=== PATIENT | male | born 1970 ===

== ENCOUNTER 2021-05-29 12:41 | Emergency (ER) | payer MEDICAID, SELFPAY ==
--- NOTE | ~2021-05-29 | XR_ITS ---
EXAMINATION: XR CHEST CLINICAL INFORMATION: Chest wall pain COMPARISON: None TECHNIQUE: Frontal view of the chest was obtained. FINDINGS: The cardiac and mediastinal contours are normal. The lungs are clear. There is no pleural effusion or pneumothorax. There are degenerative changes of the spine. XR/XR chest 1V IMPRESSION: No evidence for acute disease in the chest.
--- NOTE | 2021-05-29 12:48 | ECG_ITS ---
Test Reason : CHEST WALL PAIN Blood Pressure : / mmHG Vent. Rate : 081 BPM Atrial Rate : 081 BPM P-R Int : 154 ms QRS Dur : 086 ms QT Int : 366 ms P-R-T Axes : 040 -08 036 degrees QTc Int : 425 ms Normal sinus rhythm Normal ECG When compared with ECG of 15-NOV-2015 09:54, No significant change was found Referred By: Ksenia Marie Electronically Signed By:PETEY CAMPOS
[2021-05-29 12:50] VITALS: BP 131/92; PULSE 86; RESP 18; TEMP 36.5; O2SAT 97; BMI 36.5
[2021-05-29] MEDS: Ibuprofen 400 MG TABLET PO (12:58)
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
[2021-05-29 13:07] VITALS: BP 124/77; PULSE 76; RESP 16; TEMP 36.6; O2SAT 94
[2021-05-29 13:12] LABS: MANUAL DIFF FLAG NO
[2021-05-29 13:16] LABS: Basophils Percent Auto 0.5 % (0-2); Eosinophils Absolute Auto 0.1 X10*3/uL (0.0-0.4); Eosinophils Percent Auto 1.1 % (0-4); Hemoglobin 16.5 g/dl (14.0-18.0); Imm Gran Abs Auto 0.02 X10*3/uL (0.00-0.03); Imm Gran Pct Auto 0.2 % (0.0-0.4); Lymphocytes Absolute Auto 1.3 X10*3/uL (1.2-4.9); Lymphocytes Percent Auto 16.3 % (20-40); Mean Corpuscular Hemoglobin 28.5 pg (27.0-33.0); Mean Corpuscular Volume 86.5 fL (80-98); Mean Platelet Volume 10.6 fL (9.4-12.4); Monocytes Absolute Auto 0.7 X10*3/uL (0.1-1.2); Monocytes Percent Auto 8.4 % (2-11); Neutrophils Percent Auto 73.5 % (45-73); Platelet Count 184 X10*3/uL (160-400); Red Blood Count 5.78 X10*6/uL (4.60-5.80); Red Cell Distribution Width 13.2 % (11.0-16.0); White Blood Count 8.2 X10*3/uL (4.8-10.8)
--- NOTE | 2021-05-29 13:20 | PC.NURSE ---
PT REFUSED BACK MAKER AND MD VICKI AWARE.
[2021-05-29 13:32] LABS: Alanine Aminotransferase 17 U/L (0-40); Albumin Level 4.6 g/dL (3.5-5.0); Alkaline Phosphatase 59 U/L (39-117); Anion Gap 12 (12-20); Aspartate Amino Transferase 19 U/L (5-37); Bilirubin Total 0.4 mg/dL (0.0-1.0); Blood Urea Nitrogen 16 mg/dL (9-16); Calcium 9.6 mg/dL (8.4-10.2); Carbon Dioxide 25 mmol/L (22-29); Chloride 107 mmol/L (96-108); Creatinine Clr Calc Pharmacy 127.7; Estimated Glomerular Filt Rate > 60; Glucose Random 103 mg/dL (60-115); Potassium 4.4 mmol/L (3.3-5.1); Sodium 140 mmol/L (135-145); Total Protein 7.7 g/dL (6.5-8.0)
[2021-05-29 13:38] LABS: Troponin-I High Sensitivity 7.1 ng/L (<3.5-35.0)
--- NOTE | 2021-05-29 13:59 | PC.NURSE ---
PLAN WITH MD FOR PO OXYCODONE AND AWAITING XRAY RESULTS
[2021-05-29] MEDS: oxyCODONE HCl Immed Release 5 MG TABLET PO (14:04)
== END 2021-05-29 15:05 | disposition other institution (70) ==
PROVIDERS: Emergency Provider Student in an Organized Health Care Education/Training Program; PCP Hospitalist
DX: R07.89 Other chest pain (principal)
CPT/HCPCS: 36415; 71045; 80053; 84484; 85025; 93005; 99283; 99284

== ENCOUNTER 2021-09-17 00:44 | Emergency (ER) | payer MEDICAID, SELFPAY ==
[2021-09-17 01:00] VITALS: BP 104/79; PULSE 108; RESP 16; TEMP 37.1; O2SAT 96; BMI 32.8
--- NOTE | 2021-09-17 01:40 | PC.NURSE ---
I spoke with PRIYANKA Serrato from [facility] regarding this patient. Ama states that Vlad is, at baseline, often agitated but the past two days has been much more agitated than what we're used to. Ama also states that today he has been hyper-gnosticist, and he has never been that way. She also states that Vlad was threatening to hurt staff from [facility], and states he always makes those threats and he has never acted on them. Also of note, Ama states that Vlad has gotten ahold of illicit substances in the past. Cynthia MCKOY updated.
--- NOTE | 2021-09-17 02:10 | ED.GENADULT ---
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 On arrival with unit aide patient states that he does not get along well with the staff at [facility] Tiffanie's stated that he needed to step away from moment. He otherwise denies any fevers, chills, breathing difficulties or abdominal pain. Related Data Allergies Allergy/AdvReac Type Severity Reaction Status Date / Time No Known Allergies Allergy Unverified 06/11/20 18:53 [No Known Allergies*] Review of Systems Review of Systems: Pertinent positives and negatives as stated in HPI 10 point review of systems otherwise negative. PMFSH Past Medical History Source: nursing notes reviewed Medical History Anoxic brain damage COVID-19 Dementia GERD (gastroesophageal reflux disease) Hyperlipemia Myopia Peripheral pterygium, stationary Social History Social History Alcohol intake: never Advance Directives: No Physical Exam Vital Signs: Vital Signs: Last Vital Signs Temp 98.7 F 09/17/21 01:00 Pulse 108 H 09/17/21 01:00 Resp 16 09/17/21 01:00 BP 104/79 09/17/21 01:00 Pulse Ox 96 09/17/21 01:00 BMI result Body Mass Index 32.8 VITAL SIGNS: Reviewed. GENERAL: Well developed, well nourished, in no acute distress. HEAD: Normocephalic/atraumatic EYES: PERRLA, EOMI OROPHARYNX: no oral lesions noted, posterior pharynx clear LUNGS: Normal breath sounds. No adventitious sounds or accessory muscle use. SpO2<96> CARDIOVASCULAR: Regular rate and rhythm without noted murmurs ABDOMEN: Soft, non-tender, non-distended with bowel sounds. NEUROLOGIC: Alert and oriented x 3 Course Course Course Narrative: 51-year-old male with history and clinical presentation consistent with symptoms associated with patient's underlying TBI and basic labs that were obtained in review of all investigations are otherwise negative for acute findings. Patient was reassured and encouraged to ?start breath? and was otherwise stable and amenable to transfer back to care 1. Medical Decision Making Lab Data Result diagrams: 09/17/21 02:15 09/17/21 02:15 Labs: Lab Results 09/17/21 09/17/21 09/17/21 Range/Units 02:15 02:15 02:18 WBC 10.9 H (4.8-10.8) X10*3/uL RBC 5.67 (4.60-5.80) X10*6/uL Hgb 16.3 (14.0-18.0) g/dl Hct 49.1 (42.0-52.0) % MCV 86.6 (80.0-98.0) fL MCH 28.7 (27.0-33.0) pg MCHC 33.2 (31.0-36.0) g/dl RDW 13.3 (11.0-16.0) % Plt Count 196 (160-400) X10*3/uL MPV 10.7 (9.4-12.4) fL Immature Gran % (Auto) 0.2 (0.0-0.4) % Neut % (Auto) 66.4 (45-73) % Lymph % (Auto) 21.9 (20-40) % [place] % (Auto) 9.7 (2-11) % Eos % (Auto) 1.3 (0-4) % Baso % (Auto) 0.5 (0-2) % Lymph # (Auto) 2.4 (1.2-4.9) X10*3/uL [place] # (Auto) 1.1 (0.1-1.2) X10*3/uL Eos # (Auto) 0.1 (0.0-0.4) X10*3/uL Baso # (Auto) 0.1 (0.0-0.2) X10*3/uL Abs Immat Gran (auto) 0.02 (0.00-0.03) X10*3/uL Absolute Neuts (auto) 7.3 (2.0-8.3) x10*3/uL Absolute Nucleated RBC 0.000 (0.0-0.012) X10*3/uL Nucleated RBC % (auto) 0.0 (0.0-0.2) /100WBC Sodium 140 (135-145) mmol/L Potassium 4.1 (3.3-5.1) mmol/L Chloride 106 (96-108) mmol/L Carbon Dioxide 26 (22-29) mmol/L Anion Gap 12 (12-20) BUN 13 (9-16) mg/dL Creatinine 1.04 (0.5-1.4) mg/dL Estim Creat Clear Calc 102.0 Estimated GFR > 60 Random Glucose 107 (60-115) mg/dL Calcium 10.6 H D (8.4-10.2) mg/dL Total Bilirubin 0.6 (0.0-1.0) mg/dL AST 41 H D (5-37) U/L ALT 24 (0-40) U/L Alkaline Phosphatase 60 (39-117) U/L Total Protein 7.9 (6.5-8.0) g/dL Albumin 4.8 (3.5-5.0) g/dL Urine Color YELLOW Urine Appearance CLEAR Urine pH 6.0 (5.0-8.0) Ur Specific [place] 1.020 (1.005-1.025) Urine Protein NEG (NEG-TRACE) MG/DL Urine Glucose (UA) NEG (NEG) MG/DL Urine Ketones NEG (NEG) MG/DL Urine Blood NEG (NEG) Urine Nitrite NEG (NEG) Ur Leukocyte Esterase NEG (NEG) Urine Opiates Screen (Not Detect) Urine Fentanyl Screen (Not Detect) Ur Barbiturates Screen (Not Detect) Ur Phencyclidine Scrn (Not Detect) Ur Amphetamines Screen (Not Detect) U Benzodiazepines Scrn (Not Detect) Urine Cocaine Screen (Not Detect) U Marijuana (THC) Screen (Not Detect) 09/17/21 Range/Units 02:18 WBC (4.8-10.8) X10*3/uL RBC (4.60-5.80) X10*6/uL Hgb (14.0-18.0) g/dl Hct (42.0-52.0) % MCV (80.0-98.0) fL MCH (27.0-33.0) pg MCHC (31.0-36.0) g/dl RDW (11.0-16.0) % Plt Count (160-400) X10*3/uL MPV (9.4-12.4) fL Immature Gran % (Auto) (0.0-0.4) % Neut % (Auto) (45-73) % Lymph % (Auto) (20-40) % [place] % (Auto) (2-11) % Eos % (Auto) (0-4) % Baso % (Auto) (0-2) % Lymph # (Auto) (1.2-4.9) X10*3/uL [place] # (Auto) (0.1-1.2) X10*3/uL Eos # (Auto) (0.0-0.4) X10*3/uL Baso # (Auto) (0.0-0.2) X10*3/uL Abs Immat Gran (auto) (0.00-0.03) X10*3/uL Absolute Neuts (auto) (2.0-8.3) x10*3/uL Absolute Nucleated RBC (0.0-0.012) X10*3/uL Nucleated RBC % (auto) (0.0-0.2) /100WBC Sodium (135-145) mmol/L Potassium (3.3-5.1) mmol/L Chloride (96-108) mmol/L Carbon Dioxide (22-29) mmol/L Anion Gap (12-20) BUN (9-16) mg/dL Creatinine (0.5-1.4) mg/dL Estim Creat Clear Calc Estimated GFR Random Glucose (60-115) mg/dL Calcium (8.4-10.2) mg/dL Total Bilirubin (0.0-1.0) mg/dL AST (5-37) U/L ALT (0-40) U/L Alkaline Phosphatase (39-117) U/L Total Protein (6.5-8.0) g/dL Albumin (3.5-5.0) g/dL Urine Color Urine Appearance Urine pH (5.0-8.0) Ur Specific [place] (1.005-1.025) Urine Protein (NEG-TRACE) MG/DL Urine Glucose (UA) (NEG) MG/DL Urine Ketones (NEG) MG/DL Urine Blood (NEG) Urine Nitrite (NEG) Ur Leukocyte Esterase (NEG) Urine Opiates Screen Not Detected (Not Detect) Urine Fentanyl Screen Not Detected (Not Detect) Ur Barbiturates Screen Not Detected (Not Detect) Ur Phencyclidine Scrn Not Detected (Not Detect) Ur Amphetamines Screen Not Detected (Not Detect) U Benzodiazepines Scrn Not Detected (Not Detect) Urine Cocaine Screen Not Detected (Not Detect) U Marijuana (THC) Screen Not Detected (Not Detect) Discharge Plan Discharge Clinical Impression: Encounter for medical assessment Patient Disposition: Home, Self-Care Instructions: 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 Resume all home medications as prescribed. Return to the ER for worsening symptoms. Print Language: Ukrainian
[2021-09-17 02:23] LABS: MANUAL DIFF FLAG NO
[2021-09-17 02:25] LABS: Appearance Urine CLEAR; Color Urine YELLOW; Glucose Urine UA NEG (NEG); Leukocyte Esterase Urine NEG (NEG); Nitrite Urine NEG (NEG); Urine Blood NEG (NEG); Urine Ketones NEG (NEG); Urine Protein NEG (NEG-TRACE)
[2021-09-17 02:25] LABS: Basophils Absolute Auto 0.1 X10*3/uL (0.0-0.2); Basophils Percent Auto 0.5 % (0-2); Eosinophils Absolute Auto 0.1 X10*3/uL (0.0-0.4); Eosinophils Percent Auto 1.3 % (0-4); Hematocrit 49.1 % (42.0-52.0); Hemoglobin 16.3 g/dl (14.0-18.0); Imm Gran Abs Auto 0.02 X10*3/uL (0.00-0.03); Imm Gran Pct Auto 0.2 % (0.0-0.4); Lymphocytes Absolute Auto 2.4 X10*3/uL (1.2-4.9); Lymphocytes Percent Auto 21.9 % (20-40); Mean Corpuscular HGB Conc 33.2 g/dl (31.0-36.0); Mean Corpuscular Hemoglobin 28.7 pg (27.0-33.0); Mean Corpuscular Volume 86.6 fL (80.0-98.0); Mean Platelet Volume 10.7 fL (9.4-12.4); Monocytes Absolute Auto 1.1 X10*3/uL (0.1-1.2); Monocytes Percent Auto 9.7 % (2-11); Neutrophils Absolute Auto 7.3 x10*3/uL (2.0-8.3); Neutrophils Percent Auto 66.4 % (45-73); Platelet Count 196 X10*3/uL (160-400); Red Blood Count 5.67 X10*6/uL (4.60-5.80); Red Cell Distribution Width 13.3 % (11.0-16.0); White Blood Count 10.9 X10*3/uL (4.8-10.8)
[2021-09-17 02:45] LABS: Alanine Aminotransferase 24 U/L (0-40); Albumin Level 4.8 g/dL (3.5-5.0); Alkaline Phosphatase 60 U/L (39-117); Anion Gap 12 (12-20); Aspartate Amino Transferase 41 U/L (5-37); Bilirubin Total 0.6 mg/dL (0.0-1.0); Blood Urea Nitrogen 13 mg/dL (9-16); Carbon Dioxide 26 mmol/L (22-29); Chloride 106 mmol/L (96-108); Estimated Glomerular Filt Rate > 60; Glucose Random 107 mg/dL (60-115); Potassium 4.1 mmol/L (3.3-5.1); Sodium 140 mmol/L (135-145); Total Protein 7.9 g/dL (6.5-8.0)
[2021-09-17 02:53] LABS: Calcium 10.6 mg/dL (8.4-10.2)
[2021-09-17 03:36] LABS: Amphetamine Screen Urine Not Detected (Not Detect); Barbiturates, Urine Not Detected (Not Detect); Benzodiazepines Screen Urine Not Detected (Not Detect); Cannabinoid Screen Urine Not Detected (Not Detect); Cocaine Screen Urine Not Detected (Not Detect); Fentanyl, urine Not Detected (Not Detect); Opiate Screen Urine Not Detected (Not Detect); Phencyclidine Screen Urine Not Detected (Not Detect)
== END 2021-09-17 05:02 | disposition home or self-care (01) ==
PROVIDERS: Emergency Provider Student in an Organized Health Care Education/Training Program
DX: R41.82 Altered mental status, unspecified (principal); Z71.1 Person with feared health complaint in whom no diagnosis is made
CPT/HCPCS: 36415; 80053; 80307; 81003; 85025; 99284

== ENCOUNTER 2024-01-18 13:29 | Outpatient (REF) | payer MEDICAID, SELFPAY ==
--- NOTE | ~2024-01-18 | US_ITS ---
EXAMINATION: US SCROTUM CLINICAL INFORMATION: Testicular pain. COMPARISON: None available. TECHNIQUE: A sonogram of the scrotum was performed assessing belle-scale appearance and color Doppler flow. Spectral Doppler analysis of the arterial and venous flow were performed in the testes bilaterally. FINDINGS: RIGHT: Right testicle measures 4.5 x 2.7 x 3.3 cm, volume 21 mL. No focal testicular parenchymal lesions are visualized. Spectral Doppler analysis of the arterial and venous flow is normal in the right testis. Right epididymal head is normal in size. Some small epididymal cysts are present. There is a moderate-sized right-sided hydrocele seen but no varicocele is seen. Right epididymal Doppler flow is normal. LEFT: Left testicle measures 4.2 x 2.5 x 3.0 cm, volume 16 mL. No focal testicular parenchymal lesions are visualized. Spectral Doppler analysis of the arterial and venous flow is normal in the left testis. Left epididymal head is normal in size. Some small epididymal cysts are present. There is a tiny left hydrocele seen but no varicocele is seen. Left epididymal Doppler flow is normal. US/US scrotum IMPRESSION: 1. Bilateral hydroceles, right greater than left. 2. Bilateral epididymal cysts. 3. No evidence of testicular torsion or malignancy.
== END 2024-01-18 13:30 | disposition home or self-care (01) ==
LOC: HO.US 13:29
PROVIDERS: Visit Provider Hospitalist
DX: N50.819 Testicular pain, unspecified (principal)
CPT/HCPCS: 76870

== ENCOUNTER 2024-04-16 13:13 | Outpatient (AMB) | payer MEDICAID, SELFPAY ==
--- NOTE | 2024-04-16 13:34 | MHC.OFFVIS ---
Intake Visit Reasons: bilateral edpididymal cysts/ bilateral hydroceles Intake Note: New Patient presents for initial visit for bilateral epididymal cysts and bilateral Urology Medications: none Blood Thinner: none [employer] Consultant Required: No Accompanied by: PHYSIOTHERAPY AIDE Allergies No Known Allergies [No Known Allergies*] Allergy (Unverified 04/16/24 14:12) Medication List - Last Reconciled 04/16/24 by GINA GreenP-BC acetaminophen 650 mg PO Q6H PRN alum-mag hydroxide-simeth 200-200-20 mg/5 mL (Nicolle-Lanta) 30 mL PO Q6H PRN atorvastatin 40 mg PO DAILY benztropine 0.5 mg PO BID bisacodyl 10 mg CA DAILY PRN calcium carbonate (Calcium 500) 500 mg PO BID clonazepam 1 mg PO DAILY famotidine (Acid Photo Optics Technician (famotidine)) 10 mg PO BID gemfibrozil 600 mg PO BID glucagon 1 mg subcut Q20M PRN haloperidol 1.5 mg PO DAILY ibuprofen 600 mg PO Q6H PRN insulin asp prt-insulin aspart 100 unit/mL (70-30) (Novolog Mix 70-30 U-100 Insuln) 1 sliding scale dose subcut USEASDIRECTD lactulose 20 grams PO BID loratadine 10 mg PO DAILY PRN melatonin 5 mg PO BEDTIME PRN metformin 500 mg PO DAILY miconazole nitrate 2% (Micro-Guard) 1 appl topical DAILY PRN multivitamin 1 tab PO DAILY rifaximin (Xifaxan) 550 mg PO BID sodium phosphates 19-7 gram/118 mL (Fleet Enema) 118 mL CA DAILY PRN HPI Comments Details: Vlad is a very pleasant 53-year-old male patient of Dr. Briggs who is accompanied by Mary one of the staff memebers at [facility]. He has a past medical history of hyperlipidemia, peripheral pterygium, myopia, GERD, dementia, and anoxic brain damage. He presents to the office today as a new patient for scrotal discomfort. In discussion with the patient today he reports noting ongoing scrotal discomfort at which time he followed up with his doctor and a scrotal ultrasound was ordered and performed. These results were reviewed with the patient today. Bilateral hydroceles right greater than left. Bilateral epididymal cysts. No evidence of testicular torsion or malignancy. In assessment of the patient today small bilateral hydroceles and epididymal cysts are noted. No pain on assessment today. He reports pain is intermittent. Discussed further treatment options of bilateral hydroceles and epididymal cysts. He otherwise denies any bothersome urinary issues or concerns. He denies urinary urgency, urinary frequency, incontinence, nocturia, hematuria, dysuria, foul smelling urine, changes to urinary stream, flank pain, fever, and or chills. He is happy with his current voiding parameters. He otherwise offers no other issues or concerns at this time. [facility] Medical History Hyperlipemia COVID-19 Peripheral pterygium, stationary Myopia GERD (gastroesophageal reflux disease) Dementia Anoxic brain damage Social History Alcohol intake: never Patient Tobacco Use Status: Former Tobacco user Review of Systems Const All systems reviewed & are unremarkable except as noted in HPI and below Physical Exam Const General: cooperative, healthy appearing, comfortable, no acute distress, well developed, alert and awake Orientation/consciousness: oriented to person Limitations: no limitations HEENT Head: Yes normal to inspection, Yes normocephalic and Yes atraumatic Ears: hearing grossly normal bilaterally Eyes General: appearance normal, both eyes and all related structures Neck Neck: Yes normal visual inspection and Yes trachea midline Chest Chest palpation & inspection: normal inspection of the chest Resp Effort & Inspection: normal respiratory effort and able to speak in complete sentences Cardio Rate: regular rate GI Inspection: Yes normal to inspection Other: As per HPI General: Yes no CVA tenderness Back/Spine/Pelvis Back: no CVA tenderness Skin General skin exam: no rashes or lesions noted Neuro General: oriented to person Extrem General: Yes normal to inspection Psych Appearance: grossly normal and well kempt Mental Status: mental status grossly normal Speech and movement: Normal speech and movement present and Clear speech present Affect: normal affect Attitude: cooperative Thought process: Normal thought process present Thought content: Normal thought content present Insight: Fair insight present (Psych) Judgement: Fair judgement present (Psych) Results AMB Urinalysis, Automated UA Leukoctes 0 Giselle/uL Last Edit by Xiomy Gonzalez on 04/16/24 14:17 UA Nitrite Negative Last Edit by Xiomy Gonzalez on 04/16/24 14:17 UA Urobilinogen 0.2 mg/dL Last Edit by Xiomy Gonzalez on 04/16/24 14:17 UA Protein 0 mg/dL Last Edit by Xiomy Gonzalez on 04/16/24 14:17 UA pH 8.5 Last Edit by Xiomy Gonzalez on 04/16/24 14:17 UA Blood 0 Jcarlos/uL Last Edit by Xiomy Gonzalez on 04/16/24 14:17 UA Specific [place] 1.010 Last Edit by Xiomy Gonzalez on 04/16/24 14:17 UA Ketone Negative Last Edit by Xiomy Gonzalez on 04/16/24 14:17 UA Bilirubin 0 mg/dL Last Edit by Xiomy Gonzalez on 04/16/24 14:17 UA Glucose 0 mg/dL Last Edit by Xiomy Gonzalez on 04/16/24 14:17 Results Reviewed Results Reviewed: Laboratory Last Values Urine pH (Auto) 8.5 04/16/24 14:14 Specific [place] (Auto) 1.010 04/16/24 14:14 Urine Protein (Auto) 0 mg/dL 04/16/24 14:14 Glucose (UA)(Auto) 0 mg/dL 04/16/24 14:14 Urine Ketones (Auto) Negative 04/16/24 14:14 Urine Blood (Auto) 0 Jcarlos/uL 04/16/24 14:14 Urine Nitrite (Auto) Negative 04/16/24 14:14 Urine Bilirubin (Auto) 0 mg/dL 04/16/24 14:14 Urine Urobilinogen (Auto) 0.2 mg/dL 04/16/24 14:14 Leukocyte Esterase (Auto) 0 Giselle/uL 04/16/24 14:14 Date of Service: 01/18/24 EXAMINATION: US SCROTUM FINDINGS: RIGHT: Right testicle measures 4.5 x 2.7 x 3.3 cm, volume 21 mL. No focal testicular parenchymal lesions are visualized. Spectral Doppler analysis of the arterial and venous flow is normal in the right testis. Right epididymal head is normal in size. Some small epididymal cysts are present. There is a moderate-sized right-sided hydrocele seen but no varicocele is seen. Right epididymal Doppler flow is normal. LEFT: Left testicle measures 4.2 x 2.5 x 3.0 cm, volume 16 mL. No focal testicular parenchymal lesions are visualized. Spectral Doppler analysis of the arterial and venous flow is normal in the left testis. Left epididymal head is normal in size. Some small epididymal cysts are present. There is a tiny left hydrocele seen but no varicocele is seen. Left epididymal Doppler flow is normal. IMPRESSION: 1. Bilateral hydroceles, right greater than left. 2. Bilateral epididymal cysts. 3. No evidence of testicular torsion or malignancy. Assessment & Plan Assessment & Plan (1) Epididymal cyst: Code(s): N50.3 - Cyst of epididymis Category: Medical (2) Bilateral hydrocele: Code(s): N43.3 - Hydrocele, unspecified Category: Medical Plan In office urinalysis results reviewed with the patient today; as noted above. Discussed at length potential causes of epididymal head cyst as well as hydroceles; discussed further treatment options. No pain elicited on exam today. Patient currently denies any bothersome urinary issues or concerns. He reports be happy with current voiding parameters. Will continue with surveillance monitoring at this time. Will obtain scrotal ultrasound in 1 year. Follow-up in 1 year with imaging to be completed prior; or sooner with any issues, concerns, and or questions. Orders: Orders AMB Urinalysis Automated Today Z13.9 - Encounter for screening, unspecified US scrotum 1 Year N43.3 - Hydrocele, unspecified Patient Instructions: The patient had an opportunity to ask questions regarding the treatment plan. All questions were answered. Physical exam, labs, and imaging were discussed and reviewed in detail. As well as risks, benefits, and discussion of treatment choices. No major barriers to understanding were identified. The patient expressed understanding and agreement with the above treatment plan. The patient was made aware they should contact our office by phone for worsening of their current condition, the appearance of new symptoms, or with any questions or concerns. Compliance is encouraged with any medications and follow up testing that is ordered. It is a privilege to be allowed the opportunity to participate in? your urological care.? Again, if you have any questions or concerns If you have any questions or concerns please do not hesitate to contact me. The office is [phone]. This note is constructed using voice recognition software. While every effort has been made to ensure accuracy out patient therapist errors may have been included. Yours sincerely, TRANG Green Coding Level of Care Code New Pt Level 3 (62555) Diagnoses Epididymal cyst N50.3 Bilateral hydrocele N43.3
== END 2024-04-16 14:03 | disposition home or self-care (01) ==
PROVIDERS: PCP Hospitalist; Visit Provider Nurse Practitioner Family
DX: N50.3 Cyst of epididymis (principal); N43.3 Hydrocele, unspecified; Z13.9 Encounter for screening, unspecified
CPT/HCPCS: 99203

== ENCOUNTER → 2024-04-16 13:13 | Outpatient (BNVA) | payer MEDICAID, SELFPAY | PROVIDERS: PCP Hospitalist; Visit Provider Nurse Practitioner Family | DX: N50.3 Cyst of epididymis (principal); N43.3 Hydrocele, unspecified | CPT/HCPCS: 81003; 99202 ==

== ENCOUNTER 2025-04-03 12:32 | Outpatient (REF) | payer MEDICAID, SELFPAY ==
--- NOTE | ~2025-04-03 | US_ITS ---
CLINICAL HISTORY: N43.3 - Hydrocele, unspecified US Scrotum with Doppler Comparison: US/SR - US SCROTUM - 01/18/24 13:42 EDT Findings: Right testicle normal echotexture, 4.4 x 2.9 x 2.7 cm. Left testicle normal echotexture, 4.3 x 2.5 x 2.9 cm. Color Doppler and arterial/venous spectral tracings of both testicles within normal limits. There are small bilateral epididymal cysts, right much greater than left. There is a moderate right-sided hydrocele and a tiny left-sided hydrocele, without significant change. There is no evidence of varicocele. IMPRESSION: Moderate right-sided hydrocele and tiny left-sided hydrocele without significant change. This document has been electronically signed by: Desirae Gregg MD on 04/04/2025 13:35:48
--- OUTSIDE RECORDS SUMMARY | 2025-04-03 12:39 | XMS_ITS | Clinical Summary ---
Author Organization 299 [facility] Address [address] [place] [address] Phone Care Team Providers Care Comedian Name Role Phone Israel Briggs MD Primary Care Provider [phone] Encounters Date Type Department Care Team Description 04/03/2025 Lab Requisition [facility] Lab [address] [place] [phone] Israel Briggs MD Type 2 diabetes mellitus without complications ([facility] V24, CMS/[facility] V28); Disorder of urea cycle metabolism, unspecified (CMS/[facility] V24) 02/06/2025 Lab Requisition [facility] Lab [address] [place] [phone] Israel Briggs MD Anoxic brain damage, not elsewhere classified (CMS/[facility] V24, CMS/[facility] V28) 01/02/2025 Lab Requisition [facility] Lab [address] [place] [phone] Israel Briggs MD Type 2 diabetes mellitus without complications (CMS/HCC V24, CMS/HCC V28); Disorder of urea cycle metabolism, unspecified (CMS/[facility] V24) from Last 3 Months Social History Tobacco Use Types Packs/Day Years Used Date Smoking Tobacco: Never Assessed Sex and Gender Information Value Date Recorded Sex Assigned at Not on file Legal Sex Male 7:32 PM EST Gender Identity Not on file Sexual Orientation Not on file Plan of Treatment Health Maintenance Due Date Last Done Comments Diabetes: Annual Foot Exam 1978 Diabetes: Annual Retina Eye Exam 1978 DTaP,Tdap,and Td Vaccines (1 - Tdap) 1987 Hepatitis B Vaccines (1 of 3 - 19+ 3-dose series) 1987 Pneumococcal Vaccine: 50+ Years (1 of 2 - PCV) 1987 Pneumococcal Vaccine: Pediatrics (0 to 5 Years) and At-Risk Patients (6 to 49 Years) (1 of 2 - PCV) 1987 Zoster Vaccines (1 of 2) 2018 Colorectal Cancer Screening: Colonoscopy 08/27/2022 Depression Screening 08/27/2022 HIV Screening 08/27/2022 Hepatitis C Screening 08/27/2022 Social Influencers of Health Screening 08/27/2022 COVID-19 Vaccine (1 - 2023-2 5 season) 2024 Diabetes: Annual Urine Albumin-Creatinine Ratio (uACR) 10/04/2024 Influenza Vaccine (#1) 2025 Diabetes: Blood Sugar Contro l Test (HGBA1C) 07/04/2025 01/02/2025, 10/04/2024 Diabetes: Annual GFR (Glomerular Filtration Rate) 02/06/2026 02/06/2025, 11/04/2024 Cholesterol Screening (Lipid Panel) 11/04/2029 11/04/2024 HIB Vaccines Aged Out No longer eligi ble based on patient's age to complete this topic HPV Vaccines Aged Out No longer eligi ble based on patient's age to complete this topic Hepatitis A Vaccines Aged Out No long er eligible based on patient's age to complete this topic IPV Vaccines Aged Out No longer eligi ble based on patient's age to complete this topic MMR Vaccines Aged Out No longer eligi ble based on patient's age to complete this topic Meningococcal ACWY Vaccine Aged Out N o longer eligible based on patient's age to complete this topic Meningococcal B Vaccine Aged Out No l onger eligible based on patient's age to complete this topic RSV Immunization Patients Under 20 months Aged Out No longer eligible b ased on patient's age to complete this topic Varicella Vaccines Aged Out No longer eligible based on patient's age to complete this topic Procedures Procedure Name Priority Date/Time Associated Diagnosis Comments AMMONIA Routine 04/03/2025 6:40 AM EDT Type 2 diabetes mellitus without complications (CMS/HCC V24, CMS/HCC V28) Disorder of urea cycle metabolism, unspecified (CMS/HCC V24) COMPREHENSIVE METABOLIC PANEL Routine 02/06/2025 5:47 AM EDT Anoxic brain damage, not elsewhere classified (CMS/HCC V24, CMS/HCC V28) AMMONIA Routine 01/02/2025 6:15 AM EDT Type 2 diabetes mellitus without complications ([facility] V24, [facility] V28) Disorder of urea cycle metabolism, unspecified ([facility] V24) HEMOGLOBIN A1C Routine 01/02/2025 6:15 AM EDT Type 2 diabetes mellitus without complications ([facility] V24, [facility] V28) Disorder of urea cycle metabolism, unspecified ([facility] V24) LIPID PANEL WITH REFLEX TO DIRECT LDL Routine 11/04/2024 5:55 AM EST Type 2 diabetes mellitus without complications ([facility]) Hyperlipidemia, unspecified from Last 3 Months or Most Recently Relevant to Health Maintenance Results * (ABNORMAL) Ammonia (04/03/2025 6:40 AM EDT) Only the most recent of2 resultswithin the time period is included. Ammonia 47(H) 11 - 35 mcmol/L LAB CHEMISTRY METHOD 04/03/2025 7:55 AM EDT [facility] Blood Venous blood specimen / Unknown 04/03/2025 6:40 AM EDT 04/03/2025 7:22 AM EDT us Israel Briggs MD LAB BLOOD ORDERABLES Final Resul t [facility] [address] [place] [address], [place] [phone] * (ABNORMAL) Comprehensive metabolic panel (02/06/2025 5:47 AM EDT) Sodium 139 133 - 145 mmol/L LAB CHEMISTRY METHOD 02/06/2025 8:02 AM EDT [facility] Potassium 4.1 3.5 - 5.5 mmol/L LAB CHEMISTRY METHOD 02/06/2025 8:02 AM EDT [facility] Chloride 106 96 - 110 mmol/L LAB CHEMISTRY METHOD 02/06/2025 8:02 AM [facility] CO2 28 21 - 32 mmol/L LAB CHEMISTRY METHOD 02/06/2025 8:02 AM [facility] Anion Gap 5 3 - 11 LAB CHEMISTRY METHOD 02/06/2025 8:02 AM [facility] Glucose 203(H) 70 - 100 mg/dL LAB CHEMISTRY METHOD 02/06/2025 8:02 AM [facility] BUN 12 5 - 25 mg/dL LAB CHEMISTRY METHOD 02/06/2025 8:02 AM [facility] Creatinine 0.75 0.70 - 1.30 mg/dL LAB CHEMISTRY METHOD 02/06/2025 8:02 AM [facility] eGFR 106 >=60 mL/min/1. 73m2 LAB CHEMISTRY METHOD 02/06/2025 8:02 AM [facility] Comment:Calculation based on the Chronic Kidney Disease Epidemiology Collaboration (CKD-EPI) equation refit without adjustment for race. BUN/Creatinine Ratio 16.0 LAB CHEMISTRY METHOD 02/06/2025 8:02 AM [facility] Calcium 8.8 8.5 - 10.5 mg/dL LAB CHEMISTRY METHOD 02/06/2025 8:02 AM [facility] AST (SGOT) 19 10 - 42 unit/L LAB CHEMISTRY METHOD 02/06/2025 8:02 AM [facility] ALT (SGPT) 33 10 - 60 unit/L LAB CHEMISTRY METHOD 02/06/2025 8:02 AM [facility] Alkaline Phosphatase 77 42 - 121 unit/L LAB CHEMISTRY METHOD 02/06/2025 8:02 AM [facility] Total Protein 6.9 6.0 - 8.0 g/dL LAB CHEMISTRY METHOD 02/06/2025 8:02 AM [facility] Albumin 3.8 3.2 - 5.0 g/dL LAB CHEMISTRY METHOD 02/06/2025 8:02 AM EDT [facility] Total Bilirubin 0.3 0.0 - 1.4 mg/dL LAB CHEMISTRY METHOD 02/06/2025 8:02 AM EDT [facility] Blood Venous blood specimen / Unknown 02/06/2025 5:47 AM EDT 02/06/2025 7:19 AM EDT us Israel Briggs MD LAB BLOOD ORDERABLES Final Resul t Performing Organization Address [facility]/ZIP Co de Phone Number [facility] [address] [place] [address], [place] [phone] * (ABNORMAL) Hemoglobin A1c (01/02/2025 6:15 AM EDT) Hemoglobin A1C 8.4(H) <6.5 % LAB CHEMISTRY METHOD 01/02/2025 10:40 AM EDT [facility] Mean Bld Glu Estim. 194 mg/dL LAB CHEMISTRY METHOD 01/02/2025 10:40 AM EDT [facility] Blood Venous blood specimen / Unknown 01/02/2025 6:15 AM EDT 01/02/2025 7:03 AM EDT us Israel Briggs MD LAB BLOOD ORDERABLES Final Resul t Performing Organization Address City/[facility]/ZIP Co de Phone Number [facility] [address] [place] [address], [place] [phone] * (ABNORMAL) Lipid panel with reflex to direct LDL (11/04/2024 5:55 AM EST) Cholesterol 141 0 - 200 mg/dL LAB CHEMISTRY METHOD 11/04/2024 7:42 AM EST [facility] Triglycerides 242(H) 0 - 150 mg/dL LAB CHEMISTRY METHOD 11/04/2024 7:42 AM EST [facility] HDL 27(L) >=40 mg/dL LAB CHEMISTRY METHOD 11/04/2024 7:42 AM EST [facility] LDL Calculated 66 0 - 100 mg/dL LAB CHEMISTRY METHOD 11/04/2024 7:42 AM [facility] VLDL Cholesterol Yahir 48.4 mg/dL LAB CHEMISTRY METHOD 11/04/2024 7:42 AM EST [facility] Non HDL Chol. (LDL+VLDL) 114 <145 mg/dL LAB CHEMISTRY METHOD 11/04/2024 7:42 AM [facility] Chol/HDL Ratio 5.2(H) 0.0 - 4.4 LAB CHEMISTRY METHOD 11/04/2024 7:42 AM [facility] Blood Venous blood specimen / Unknown 11/04/2024 5:55 AM EST 11/04/2024 6:38 AM EST us Israel Briggs MD LAB BLOOD ORDERABLES Final Resul t [facility] [address] [place] [address], from Last 3 Months or Most Recently Relevant to Health Maintenance Insurance MEDICAID - [place] Care Teams Comedian Relationship Specialty Start Date End Date Israel Briggs MD [address] [place] [address] Estuardo [facility] [place] Will PCP - General Internal Medicine 10/04/24
== END 2025-04-03 12:33 | disposition home or self-care (01) ==
LOC: HO.US 12:32
PROVIDERS: PCP Hospitalist; Visit Provider Nurse Practitioner Family
DX: N43.3 Hydrocele, unspecified (principal)
CPT/HCPCS: 76870

== ENCOUNTER → 2025-04-03 12:35 | Outpatient (BNV) | payer MEDICAID, SELFPAY | PROVIDERS: PCP Hospitalist; Visit Provider Radiology Diagnostic Radiology | DX: N43.3 Hydrocele, unspecified (principal) | CPT/HCPCS: 76870 ==

== ENCOUNTER 2025-04-11 10:14 | Outpatient (AMB) | payer MEDICAID, SELFPAY ==
--- NOTE | 2025-04-11 07:42 | A.OFFVIS_ITS ---
Intake Visit Reasons: Current Smoker Allergies No Known Allergies (No Known Allergies*) Allergy (Unverified 04/16/24 14:12) HPI HPI Current Smoker: Details: Initial visit for this 54yo smoker with a 40PYH. Patient started smoking at age 10 for 44 years at 1ppd. . Denies marijuana use. Denies second hand smoke exposure. Denies exposure to chemicals or substances like asbestos. . Denies known family history of lung cancer. Denies personal history of cancers. Denies chest CT in last year. . Denies recent travel outside the [place]. Denies recent respiratory illness or recent hospitalization for respiratory issues. History of testing positive for COVID. Admits receiving COVID Vaccine. . Denies fever, chills, new/worsening cough, hemoptysis, hoarseness or dysphagia. Denies significant chest pain, significant dyspnea or unintentional weight loss. Patient Lung Cancer Screening Questionnaire reviewed with patient by provider. . Shared Decision Making Completed. Patient meets criteria. Discussed in detail with patient, the risk vs benefit of LDCT screening. Patient consents to proceed with scan. Discussed smoking cessation. [facility] Medical History (Updated 04/11/25 @ 10:25 by Kaylee Rios PA-C) Type 2 diabetes mellitus Nicotine dependence, cigarettes, uncomplicated Hyperlipemia COVID-19 Peripheral pterygium, stationary Myopia GERD (gastroesophageal reflux disease) Dementia Anoxic brain damage Surgical History (Updated 02/13/25 @ 13:46 by Kaylee Rios PA-C) History of hand surgery Social History (Updated 04/11/25 @ 10:25 by Kaylee Rios PA-C) Alcohol intake: never Patient Tobacco Use Status: Current everyday Tobacco user Tobacco use type: Cigarette Years Smoked: (onset 10yo, 1ppd x 44yrs, 40pyh) Assessment & Plan Assessment & Plan (1) Nicotine dependence, cigarettes, uncomplicated: Comment: (onset 10yo, 1ppd x 44yrs, 40pyh) Code(s): F17.210 - Nicotine dependence, cigarettes, uncomplicated Category: Medical Plan: - SDM visit completed today in office. - Patient meets criteria for LDCT for lung cancer screening purposes and is asymptomatic. - Smoking cessation counseling offered. Patients can always call [phone]. - Will arrange for a LDCT scan of the chest for screening purposes at [facility]. - Risks, benefits, and alternatives were discussed in detail and the patient agrees to proceed. - Risks discussed include but are not limited to: radiation exposure, anxiety during testing and while awaiting results, false negatives, false positives and possibility of additional intervention such as further imaging or surgical procedures for benign disease. - Benefits are obviously detection of lung cancer at an early stage which can lead to improved outcomes. - Discussed the importance of screening program compliance with adherence to yearly LDCT scan as scheduled - or sooner interval scans for personalized screening regimen. - Discussed follow up plan. Our office will send a letter discussing results and if needed set up phone call and office visit based on CT findings. - Patient educated on results categorization and the management decisions for suspicious findings potentially found on the screening LDCT scan. Any patient with a Lung RADS score of 3 or 4 will be reviewed by a multidisciplinary team at [facility] to form a plan of action in regards to scan findings. - If further work up is warranted for a suspicious lung finding this will be followed by the Lung Cancer Screening program in conjunction with the Thoracic Surgery Department at [facility]. - A copy of the office note and LDCT will be sent to the patient's PCP - as well as documentation on any associated further plans of care. - Incidental findings on LDCT are the PCP's responsibility. These findings are indicated with an S finding on the LDCT Assessment. A note discussing the findings will be sent to the PCP who is then responsible for further management. - All questions answered.? Coding Level of Care Code Lung Cancer Screening G0296 Diagnoses Nicotine dependence, cigarettes, uncomplicated F17.210
--- OUTSIDE RECORDS SUMMARY | 2025-04-11 10:35 | XMS_ITS | Clinical Summary ---
Author Organization 299 [facility] Address [address] [place] [address] Phone Care Team Providers Care Apparel Rental Clerk Name Role Phone Israel Briggs MD Primary Care Provider [phone] Encounters Date Type Department Care Team Description 04/03/2025 Lab Requisition [facility] Lab [address] [place] [address] Israel Briggs MD Type 2 diabetes mellitus without complications (CMS/HCC V24, CMS/HCC V28); Disorder of urea cycle metabolism, unspecified (CMS/[facility] V24) 02/06/2025 Lab Requisition [facility] Lab [address] [place] [address] Israel Briggs MD Anoxic brain damage, not elsewhere classified (CMS/HCC V24, CMS/HCC V28) from Last 3 Months Social History Tobacco [...] Years (1 of 2 - PCV) 1987 Zoster Vaccines (1 of 2) 2018 Colorectal Cancer Screening: Colonoscopy 08/27/2022 Depression Screening 08/27/2022 HIV Screening 08/27/2022 Hepatitis C Screening 08/27/2022 Social Influencers of Health Screening 08/27/2022 COVID-19 Vaccine (1 - 2023-2 5 season) 2024 Diabetes: Annual Urine Albumin-Creatinine Ratio (uACR) 10/04/2024 Influenza Vaccine (#1) 2025 Diabetes: Blood Sugar Contro l Test (HGBA1C) 10/04/2025 04/03/2025, 01/02/2025, 10/04/2024 Diabetes: Annual GFR (Glomerular Filtration [...] of urea cycle metabolism, unspecified (CMS/HCC V24) HEMOGLOBIN A1C Routine 04/03/2025 6:40 AM EDT Type 2 diabetes mellitus without complications (CMS/HCC V24, CMS/HCC V28) Disorder of urea cycle metabolism, unspecified (CMS/HCC V24) COMPREHENSIVE METABOLIC PANEL Routine 02/06/2025 5:47 AM EDT Anoxic brain damage, not elsewhere classified (CMS/HCC V24, CMS/HCC V28) LIPID PANEL WITH REFLEX TO DIRECT LDL Routine 11/04/2024 5:55 AM EST Type 2 diabetes mellitus without complications (CMS/HCC) Hyperlipidemia, unspecified from Last 3 Months or Most Recently Relevant to Health Maintenance Results * (ABNORMAL) Hemoglobin A1c (04/03/2025 6:40 AM EDT) Pathologist [facility] Hemoglobin A1C 9.0(H) <6.5 % LAB CHEMISTRY METHOD 04/03/2025 1:36 PM EDT [facility] Mean Bld Glu Estim. 212 mg/dL LAB CHEMISTRY METHOD 04/03/2025 1:36 PM EDT [facility] Blood Venous blood specimen / Unknown 04/03/2025 6:40 AM EDT 04/03/2025 7:22 AM EDT us Israel Briggs MD LAB BLOOD ORDERABLES Final Resul t Performing Organization Address [facility]/ZIP Co de Phone Number [facility] [address] [place] [address], * (ABNORMAL) Ammonia (04/03/2025 6:40 AM EDT) [facility] Ammonia 47(H) 11 - 35 mcmol/L LAB CHEMISTRY METHOD 04/03/2025 7:55 AM EDT [facility] Blood Venous blood specimen / Unknown 04/03/2025 6:40 AM EDT 04/03/2025 7:22 AM EDT us Israel Briggs MD LAB BLOOD ORDERABLES Final Resul t Performing Organization Address City/[facility]/ZIP Co de Phone Number [facility] [address] [place] [address], * (ABNORMAL) Comprehensive metabolic panel (02/06/2025 5:47 AM EDT) [facility] Sodium 139 133 - 145 mmol/L LAB CHEMISTRY METHOD 02/06/2025 8:02 AM EDT [facility] Potassium 4.1 3.5 - 5.5 mmol/L LAB CHEMISTRY METHOD 02/06/2025 8:02 AM [facility] Chloride 106 96 - 110 mmol/L LAB CHEMISTRY METHOD 02/06/2025 8:02 AM [facility] CO2 28 21 - 32 mmol/L LAB CHEMISTRY METHOD 02/06/2025 8:02 AM [facility] Anion Gap 5 3 - 11 LAB CHEMISTRY METHOD 02/06/2025 8:02 AM [facility] Glucose 203(H) 70 - 100 mg/dL LAB CHEMISTRY METHOD 02/06/2025 8:02 AM [facility] BUN 12 5 - 25 mg/dL LAB CHEMISTRY METHOD 02/06/2025 8:02 AM [facility] Creatinine 0.75 0.70 - 1.30 mg/dL LAB CHEMISTRY METHOD 02/06/2025 8:02 AM [facility] eGFR 106 >=60 mL/min/1. 73m2 LAB CHEMISTRY METHOD 02/06/2025 8:02 AM [facility] Comment:Calculation based on the Chronic Kidney Disease Epidemiology Collaboration (CKD-EPI) equation refit without adjustment for race. BUN/Creatinine Ratio 16.0 LAB CHEMISTRY METHOD 02/06/2025 8:02 AM [facility] Calcium 8.8 8.5 - 10.5 mg/dL LAB CHEMISTRY METHOD 02/06/2025 8:02 AM [facility] AST (SGOT) 19 10 - 42 unit/L LAB CHEMISTRY METHOD 02/06/2025 8:02 AM [facility] ALT (SGPT) 33 10 - 60 unit/L LAB CHEMISTRY METHOD 02/06/2025 8:02 AM [facility] Alkaline Phosphatase 77 42 - 121 unit/L LAB CHEMISTRY METHOD 02/06/2025 8:02 AM [facility] Total Protein 6.9 6.0 - 8.0 g/dL LAB CHEMISTRY METHOD 02/06/2025 8:02 AM EDT [facility] Albumin 3.8 3.2 - 5.0 g/dL LAB CHEMISTRY METHOD 02/06/2025 8:02 AM EDT [facility] Total Bilirubin 0.3 0.0 - 1.4 mg/dL LAB CHEMISTRY METHOD 02/06/2025 8:02 AM EDT [facility] Blood Venous blood specimen / Unknown 02/06/2025 5:47 AM EDT 02/06/2025 7:19 AM EDT us Israel Briggs MD LAB BLOOD ORDERABLES Final Resul t [facility] [address] [place] [address], [place] [phone] * (ABNORMAL) Lipid panel with reflex to direct LDL (11/04/2024 5:55 AM EST) Cholesterol 141 0 - 200 mg/dL LAB CHEMISTRY METHOD 11/04/2024 7:42 AM [facility] Triglycerides 242(H) 0 - 150 mg/dL LAB CHEMISTRY METHOD 11/04/2024 7:42 AM [facility] HDL 27(L) >=40 mg/dL LAB CHEMISTRY METHOD 11/04/2024 7:42 AM [facility] LDL Calculated 66 0 - 100 mg/dL LAB CHEMISTRY METHOD 11/04/2024 7:42 AM [facility] VLDL Cholesterol Yahir 48.4 mg/dL LAB CHEMISTRY METHOD 11/04/2024 7:42 AM [facility] Non HDL Chol. (LDL+VLDL) 114 <145 mg/dL LAB CHEMISTRY METHOD 11/04/2024 7:42 AM [facility] Chol/HDL Ratio 5.2(H) 0.0 - 4.4 LAB CHEMISTRY METHOD 11/04/2024 7:42 AM EST [facility] Blood Venous blood specimen / Unknown 11/04/2024 5:55 AM EST 11/04/2024 6:38 AM EST Israel Briggs MD LAB BLOOD ORDERABLES Final Resul t [facility] [address] [place] [address], from Last 3 Months or Most Recently Relevant to Health Maintenance Insurance [place]ICAID - [place] Care Teams Apparel Rental Clerk Relationship Specialty Start Date End Date Israel Briggs MD [address] [place] [address] Dr [address] [place], [place] PCP - General Internal Medicine 10/04/24
== END 2025-04-11 11:09 | disposition home or self-care (01) ==
LOC: HO.HPS 10:15
PROVIDERS: PCP Hospitalist; Referring Provider Hospitalist; Visit Provider Physician Assistant Medical
DX: F17.210 Nicotine dependence, cigarettes, uncomplicated (principal)
CPT/HCPCS: G0296

== ENCOUNTER 2025-04-11 10:31 | Outpatient (REF) | payer MEDICAID, SELFPAY ==
--- NOTE | ~2025-04-11 | CT_ITS ---
CLINICAL HISTORY: F17.210 - Nicotine dependence, cigarettes, uncomplicated CT lung cancer screening (LDCT) Comparison: None provided Technique: Axial CT images of the chest using low-dose technique. Referring provider counseled the patient on shared decision-making for LDCT screening. Additional counseling was provided on smoking cessation. Effective radiation dose total: DLP 53.5 mGycm, CTDIvol 1.5 mGy. Findings: Lung: Minimal biapical paraseptal emphysema. No acute process. Right lower lobe and inferior lingula parenchymal scar. Left upper lobe subpleural micronodule laterally on image 60, series 6. Coronary artery calcifications: None Limited upper abdomen: Unremarkable Other: None Impression: LungRADS 1: Negative exam. Continue annual screening with low dose Chest CT in 12 months. ##L1## Category 1: Normal; continue annual screening Category 2: Benign appearance or behavior, continue annual screening Category 3: Probably benign, [address] recommended Category 4A: Suspicious, [address] recommended; may consider PET/CT Category 4B: Suspicious, Additional diagnostics and/or tissue sampling recommended Category 4X: Suspicious, Additional diagnostics and/or tissue sampling recommended Category 0: Recalls (incomplete screen due to Incomplete coverage, Noise, Respiratory motion, Expiration, Obscured by acute abnormality) This document has been electronically signed by: Alesha Ching MD on 04/11/2025 13:43:27
== END 2025-04-11 10:32 | disposition home or self-care (01) ==
LOC: HO.CT 10:31
PROVIDERS: PCP Hospitalist; Visit Provider Physician Assistant Medical
DX: Z12.2 Encounter for screening for malignant neoplasm of respiratory organs (principal); F17.210 Nicotine dependence, cigarettes, uncomplicated
CPT/HCPCS: 71271; G0296

== ENCOUNTER → 2025-04-11 10:33 | Outpatient (BNV) | payer MEDICAID, SELFPAY | PROVIDERS: PCP Hospitalist; Visit Provider Radiology Diagnostic Radiology | DX: Z12.2 Encounter for screening for malignant neoplasm of respiratory organs (principal); F17.210 Nicotine dependence, cigarettes, uncomplicated | CPT/HCPCS: 71271 ==

== ENCOUNTER 2025-04-16 11:23 | Outpatient (AMB) | payer MEDICAID, SELFPAY ==
--- NOTE | 2025-04-16 11:24 | A.OFFVIS_ITS ---
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 Briggs who is accompanied by Mary one of the staff memebers at [facility]. He has a past medical history of hyperlipidemia, peripheral pterygium, myopia, GERD, dementia, and anoxic brain damage. He presents to the office today for follow-up of his scrotal discomfort and bilateral hydroceles. In discussion with the patient today he reports to be doing and feeling well. He denies having had any bothersome urinary issues or scrotal discomfort since his last office visit here over a year ago. Patient with a history of bilateral hydroceles right side greater than left. We have discussed further interventions of hydroceles as well as risks and benefits of these interventions however patient continues to express surveillance monitoring as he does not feel he has any bothersome issues at this time. Assessment was offered during today's office visit however patient declines. In office urinalysis results reviewed with the patient today. 3+ glucosuria otherwise within normal limits. He does discuss his diabetes in his aware of his eating habits. Recent scrotal ultrasound results were reviewed 04/18 moderate right-sided hydrocele and tiny left sided hydrocele without significant change. He denies urinary urgency, urinary frequency, incontinence, nocturia, hematuria, dysuria, foul smelling urine, changes to urinary stream, flank pain, fever, and or chills. He is happy with his current voiding parameters. He otherwise offers no other issues or concerns at this time. COUNT INCLUDES THE [facility] Medical History Type 2 diabetes mellitus Nicotine dependence, cigarettes, uncomplicated Hyperlipemia COVID-19 Peripheral pterygium, stationary Myopia GERD (gastroesophageal reflux disease) Dementia Anoxic brain damage Surgical History (Updated 02/13/25 @ 13:46 by Kaylee Rios PA-C) History of hand surgery Social History (Updated 04/11/25 @ 10:25 by Kaylee Rios PA-C) Alcohol intake: never Patient Tobacco Use Status: Current everyday Tobacco user Tobacco use type: Cigarette Years Smoked: (onset 10yo, 1ppd x 44yrs, 40pyh) Review of Systems Const All systems reviewed & are unremarkable except as noted in HPI and below Physical Exam Const General: cooperative, healthy appearing, comfortable, no acute distress, well developed, alert and awake Orientation/consciousness: oriented to person Limitations: no limitations HEENT Head: Yes normal to inspection, Yes normocephalic and Yes atraumatic Ears: hearing grossly normal bilaterally Eyes General: appearance normal, both eyes and all related structures Neck Neck: Yes normal visual inspection and Yes trachea midline Chest Chest palpation & inspection: normal inspection of the chest Resp Effort & Inspection: normal respiratory effort and able to speak in complete sentences Cardio Rate: regular rate GI Inspection: Yes normal to inspection Other: As per HPI General: Yes no CVA tenderness Back/Spine/Pelvis Back: no CVA tenderness Skin General skin exam: no rashes or lesions noted Neuro General: oriented to person Extrem General: Yes normal to inspection Psych Appearance: grossly normal and well kempt Mental Status: mental status grossly normal Speech and movement: Normal speech and movement present and Clear speech present Affect: normal affect Attitude: cooperative Thought process: Normal thought process present Thought content: Normal thought content present Insight: Fair insight present (Psych) Judgement: Fair judgement present (Psych) Results Reviewed Results Reviewed: Date of Service: 04/03/25 Procedure(s): US scrotum Findings: Right testicle normal echotexture, 4.4 x 2.9 x 2.7 cm. Left testicle normal echotexture, 4.3 x 2.5 x 2.9 cm. Color Doppler and arterial/venous spectral tracings of both testicles within normal limits. There are small bilateral epididymal cysts, right much greater than left. There is a moderate right-sided hydrocele and a tiny left-sided hydrocele, without significant change. There is no evidence of varicocele. IMPRESSION: Moderate right-sided hydrocele and tiny left-sided hydrocele without significant change. Assessment & Plan Assessment & Plan (1) Epididymal cyst: Code(s): N50.3 - Cyst of epididymis Category: Medical (2) Bilateral hydrocele: Code(s): N43.3 - Hydrocele, unspecified Category: Medical Plan In office urinalysis results reviewed with the patient today; as noted above. Discussed at length potential causes of epididymal head cyst as well as hydroceles; discussed further treatment options.. Patient currently denies any bothersome urinary issues or concerns. He reports be happy with current voiding parameters. Will continue with surveillance monitoring at this time. Will obtain PSA Follow-up in 1 year with PSA to be completed prior; or sooner with any issues, concerns, and or questions. Orders: Orders Prostate Specific Antigen 1 Year N40.0 - Benign prostatic hyperplasia without lower urinary tract symptoms AMB Urinalysis Automated Today Z13.9 - Encounter for screening, unspecified Patient Instructions: The patient had an opportunity to ask questions regarding the treatment plan. All questions were answered. Physical exam, labs, and imaging were discussed and reviewed in detail. As well as risks, benefits, and discussion of treatment choices. No major barriers to understanding were identified. The patient expressed understanding and agreement with the above treatment plan. The patient was made aware they should contact our office by phone for worsening of their current condition, the appearance of new symptoms, or with any questions or concerns. Compliance is encouraged with any medications and follow up testing that is ordered. It is a privilege to be allowed the opportunity to participate in? your urological care.? Again, if you have any questions or concerns If you have any questions or concerns please do not hesitate to contact me. The office is [phone]. This note is constructed using voice recognition software. While every effort has been made to ensure accuracy renewal specialist errors may have been included. Yours sincerely, TRANG Green Coding Level of Care Code Est Pt Level 3 (44368) Complex EM visit Add On G2211 Diagnoses Epididymal cyst N50.3 Bilateral hydrocele N43.3
--- OUTSIDE RECORDS SUMMARY | 2025-04-16 12:23 | XMS_ITS | Clinical Summary ---
Author Organization [address] [facility] Address [address] [place] [address] Phone Care Team Providers Care Director Emergency Department Name Role Phone Israel Briggs MD Primary Care Provider [phone] Encounters Date Type Department Care Team Description 04/03/2025 Lab Requisition [facility] [address] [place] [address] Israel Briggs MD Type 2 diabetes mellitus without complications (CMS/HCC V24, CMS/HCC V28); Disorder of urea cycle metabolism, unspecified (CMS/[facility] V24) 02/06/2025 Lab Requisition [facility] [address] [place] [address] Israel Briggs MD Anoxic brain [...] 2) 2018 Colorectal Cancer Screening: Colonoscopy 08/27/2022 HIV Screening 08/27/2022 Hepatitis C Screening 08/27/2022 Social Influencers of Health Screening 08/27/2022 COVID-19 Vaccine (1 - 2023-2 5 season) 2024 Depression Screening 09/25/2024 Diabetes: Annual Urine Albumin-Creatinine Ratio (uACR) 10/04/2024 [...] Hemoglobin A1c (04/03/2025 6:40 AM EDT) Pathologist [facility] Hemoglobin A1C 9.0(H) <6.5 % LAB CHEMISTRY METHOD 04/03/2025 1:36 PM EDT [facility] Mean Bld Glu Estim. 212 mg/dL LAB CHEMISTRY METHOD 04/03/2025 1:36 PM EDT [facility] Blood Venous blood specimen / Unknown 04/03/2025 6:40 AM EDT 04/03/2025 7:22 AM EDT us Israel Briggs MD LAB BLOOD ORDERABLES Final Resul t Performing Organization Address [facility]/ZIP Co de Phone Number [facility] [address] [place] [address], * (ABNORMAL) Ammonia (04/03/2025 6:40 AM EDT) [facility] Ammonia 47(H) 11 - 35 mcmol/L LAB CHEMISTRY METHOD 04/03/2025 7:55 AM EDT [facility] Blood Venous blood specimen / Unknown 04/03/2025 6:40 AM EDT 04/03/2025 7:22 AM EDT us Israel Briggs MD LAB BLOOD ORDERABLES Final Resul t Performing Organization Address City/[facility]/ZIP Co de Phone Number [facility] [address] [place] [address], * (ABNORMAL) Comprehensive metabolic panel (02/06/2025 5:47 AM EDT) [facility] Sodium 139 133 - 145 mmol/L LAB CHEMISTRY METHOD 02/06/2025 8:02 AM EDT [facility] Potassium 4.1 3.5 - 5.5 mmol/L LAB CHEMISTRY METHOD 02/06/2025 8:02 AM [facility] Chloride 106 96 - 110 mmol/L LAB CHEMISTRY METHOD 02/06/2025 8:02 AM [facility] CO2 28 21 - 32 mmol/L LAB CHEMISTRY METHOD 02/06/2025 8:02 AM [facility] Anion Gap 5 3 - 11 LAB CHEMISTRY METHOD 02/06/2025 8:02 AM [facility] Glucose 203(H) 70 - 100 mg/dL LAB CHEMISTRY METHOD 02/06/2025 8:02 AM [facility] BUN 12 5 - 25 mg/dL LAB CHEMISTRY METHOD 02/06/2025 8:02 AM [facility] Creatinine 0.75 0.70 - 1.30 mg/dL LAB CHEMISTRY METHOD 02/06/2025 8:02 AM [facility] eGFR 106 >=60 mL/min/1. 73m2 LAB CHEMISTRY METHOD 02/06/2025 8:02 AM [facility] Comment:Calculation based on the Chronic Kidney Disease Epidemiology Collaboration (CKD-EPI) equation refit without adjustment for race. BUN/Creatinine Ratio 16.0 LAB CHEMISTRY METHOD 02/06/2025 8:02 AM [facility] Calcium 8.8 8.5 - 10.5 mg/dL LAB CHEMISTRY METHOD 02/06/2025 8:02 AM [facility] AST (SGOT) 19 10 - 42 unit/L LAB CHEMISTRY METHOD 02/06/2025 8:02 AM [facility] ALT (SGPT) 33 10 - 60 unit/L LAB CHEMISTRY METHOD 02/06/2025 8:02 AM [facility] Alkaline Phosphatase 77 42 - 121 unit/L LAB CHEMISTRY METHOD 02/06/2025 8:02 AM [facility] Total Protein 6.9 6.0 - 8.0 g/dL LAB CHEMISTRY METHOD 02/06/2025 8:02 AM EDT [facility] Albumin 3.8 3.2 - 5.0 g/dL LAB CHEMISTRY METHOD 02/06/2025 8:02 AM EDT [facility] Total Bilirubin 0.3 0.0 - 1.4 mg/dL LAB CHEMISTRY METHOD 02/06/2025 8:02 AM EDT [facility] Blood Venous blood specimen / Unknown 02/06/2025 5:47 AM EDT 02/06/2025 7:19 AM EDT us Israel Briggs MD LAB BLOOD ORDERABLES Final Resul t [facility] [address] [place] [address], [place] [phone] * (ABNORMAL) Lipid panel with reflex to direct LDL (11/04/2024 5:55 AM EST) Cholesterol 141 0 - 200 mg/dL LAB CHEMISTRY METHOD 11/04/2024 7:42 AM [facility] Triglycerides 242(H) 0 - 150 mg/dL LAB CHEMISTRY METHOD 11/04/2024 7:42 AM [facility] HDL 27(L) >=40 mg/dL LAB CHEMISTRY METHOD 11/04/2024 7:42 AM [facility] LDL Calculated 66 0 - 100 mg/dL LAB CHEMISTRY METHOD 11/04/2024 7:42 AM [facility] VLDL Cholesterol Yahir 48.4 mg/dL LAB CHEMISTRY METHOD 11/04/2024 7:42 AM [facility] Non HDL Chol. (LDL+VLDL) 114 <145 mg/dL LAB CHEMISTRY METHOD 11/04/2024 7:42 AM [facility] Chol/HDL Ratio 5.2(H) 0.0 - 4.4 LAB CHEMISTRY METHOD 11/04/2024 7:42 AM EST [facility] Blood Venous blood specimen / Unknown 11/04/2024 5:55 AM EST 11/04/2024 6:38 AM EST Israel Briggs MD LAB BLOOD ORDERABLES Final Resul t [facility] [address] [place] [address], from Last 3 Months or Most Recently Relevant to Health Maintenance Insurance MEDICAID - [place] Care Teams Director Emergency Department Relationship Specialty Start Date End Date Israel Briggs MD [address] [place] [address] Dr [address] [place], [place] PCP - General Internal Medicine 10/04/24
== END 2025-04-16 11:56 | disposition home or self-care (01) ==
LOC: HO.HUSH 11:23
PROVIDERS: PCP Hospitalist; Visit Provider Nurse Practitioner Family
DX: N50.3 Cyst of epididymis (principal); N43.3 Hydrocele, unspecified; Z13.9 Encounter for screening, unspecified
CPT/HCPCS: 99213; G2211

== ENCOUNTER → 2025-04-16 11:23 | Outpatient (BNVA) | payer MEDICAID, SELFPAY | PROVIDERS: PCP Hospitalist; Visit Provider Nurse Practitioner Family | DX: N50.3 Cyst of epididymis (principal); N43.3 Hydrocele, unspecified | CPT/HCPCS: 81003; 99212 ==